=== PATIENT | female | born 1980 | race American Indian/Alaskan Native ===

== ENCOUNTER 2019-06-14 18:06 | Emergency (ER) | payer OTHER ==
[2019-06-14 18:15] VITALS: BP 173/112
--- NOTE | 2019-06-14 18:18 | Event Note ---
ED Screening Note Date of service: 06/14/19 Time: 18:16 ED Screening Note: This is a 39 y.o. F. that presents to the ER with sensation of something in right eye. States "it feel like a rock is in my right eye". She woke up with crusting, redness, and drainage to right eye. Denies contact use or visual changes. This initial assessment/diagnostic orders/clinical plan/treatment(s) is/are subject to change based on patients health status, clinical progression and re- assessment by fellow clinical providers in the ED. Further treatment and workup at subsequent clinical providers discretion. Patient/guardian urged not to elope from the ED as their condition may be serious if not clinically assessed and managed. Initial orders include:
[2019-06-14] MEDS ORDERED: TETRACAINE 0.5% OU ONE (18:59)
[2019-06-14] MEDS ORDERED: FUL-GLO OP ONE (18:59)
--- NOTE | 2019-06-14 19:05 | Emergency Department Report ---
HPI - General Chief Complaint: Eye Problems Time Seen by Provider: 06/14/19 18:15 - HPI HPI: 39-year-old Makenna female presents to the emergency department with complaint of a 3 to four-day history of right eye redness, irritation, drainage, tearing. She denies any trauma to the or that something could have gotten into the eye. She denies any vision change but describes the sensation as if there is some sand or a rock in there. She has an appointment in the morning with her feather mixer. She has a history of diabetic retinopathy, diabetes, hypertension. She has not taken anything for her symptoms prior to arrival today. ED Past Medical Hx - Past Medical History Previous Medical History?: Yes Hx Hypertension: Yes Hx Diabetes: Yes - Surgical History Past Surgical History?: No - Social History Smoking Status: Current Every Day Smoker Substance Use Type: Prescribed - Medications Home Medications: Home Medications Medication Instructions Recorded Confirmed Last Taken Type Tobramycin [Tobrex] 1 drop OD Q4H #1 bottle 06/14/19 Unknown Rx ED Review of Systems ROS: Stated complaint: RT EYE PAIN Other details as noted in HPI Comment: All other systems reviewed and negative Constitutional: denies: chills, fever Eyes: eye pain, eye discharge. denies: vision change ENT: denies: ear pain, throat pain Skin: denies: rash, lesions Neurological: denies: headache Physical Exam - Physical Exam Vital Signs: Vital Signs 06/14/19 18:12 Temperature 99.1 F Pulse Rate 103 H Respiratory 16 Rate Blood Pressure 173/112 O2 Sat by Pulse 99 Oximetry Physical Exam: GENERAL: The patient is well-developed well-nourished. HENT: Normocephalic. Atraumatic. Patient has moist mucous membranes. EYES: Extraocular motions are intact. Pupils equal reactive to light bilaterally. No fluorescein uptake seen with with Wood's lamp. Visual acuity: OD 20/40, OS 20/30, both eyes 20/25. There is diffuse right conjunctival injection. NECK: Supple. Trachea is midline. ABDOMEN: There is no abdominal distention. SKIN: Skin is warm and dry. NEURO: The patient is awake, alert, and oriented. The patient is cooperative. The patient has no focal neurologic deficits. Normal speech. MUSCULOSKELETAL: There is no tenderness or deformity. There is no limitation range of motion. There is no evidence of acute injury. ED Course Vital Signs 06/14/19 18:12 Temperature 99.1 F Pulse Rate 103 H Respiratory 16 Rate Blood Pressure 173/112 O2 Sat by Pulse 99 Oximetry ED Medical Decision Making - Medical Decision Making Patient presents with a few days of right eye redness and irritation. She denies any vision changes. Visual acuity does show the right eye is slightly worse than the left. However the patient does wear glasses and is not currently wearing them. There was no corneal defect as there was no fluorescein uptake. Patient will be placed on antibiotic eyedrops. She has an appointment with her feather mixer in the morning. She will return to the ER with any worsening of her symptoms or any acute distress. - Differential Diagnosis conjunctivitis, corneal abrasion, corneal ulcer Critical Care Time: No Critical care attestation.: If time is entered above; I have spent that time in minutes in the direct care of this critically ill patient, excluding procedure time. ED Disposition Clinical Impression: Conjunctivitis, right eye Qualifiers: Conjunctivitis type: acute Acute conjunctivitis type: unspecified Qualified Code(s): H10.31 - Unspecified acute conjunctivitis, right eye Hypertension Qualifiers: Hypertension type: essential hypertension Qualified Code(s): I10 - Essential (primary) hypertension Disposition: DC- TO HOME OR SELFCARE Is pt being admited?: No Condition: Stable Instructions: Conjunctivitis (ED), Hypertension (ED) Additional Instructions: Please follow-up with your feather mixer in the morning as previously scheduled. Return to the emergency Department with any worsening of your symptoms or any acute distress. Take the antibiotic eyedrops as prescribed. Take your normal blood pressure medication as prescribed. Try and stay away from foods that are high in salt and caffeinated products. Keep a blood pressure log. Prescriptions: Tobramycin [Tobrex] 1 drop OD Q4H #1 bottle Referrals: [employer] [facility], Your [Other] - 06/15/19 Time of Disposition: 19:22
== END 2019-06-14 19:30 | disposition home or self-care (01) ==
LOC: ED 18:06
DX: H10.9 Unspecified conjunctivitis (principal); I10 Essential (primary) hypertension; E11.9 Type 2 diabetes mellitus without complications; F17.200 Nicotine dependence, unspecified, uncomplicated